=== PATIENT | male | born 1975 ===

== ENCOUNTER 2018-06-25 15:02 | Emergency (ER) | payer OTHER ==
[2018-06-25 15:31] VITALS: BP 109/62; PULSE 92; RESP 18; TEMP 98.8; O2SAT 100
--- NOTE | 2018-06-25 15:53 | ED PDOC ---
Upper Extremity Pain/Injury Time Seen by Provider: 06/25/18 15:35 Chief Complaint (Nursing): Upper Extremity Problem/Injury Chief Complaint (Provider): Right shoulder pain History Per: Patient History/Exam Limitations: no limitations Onset/Duration Of Symptoms: Days (x2) Current Symptoms Are (Timing): Still Present Quality: Sharp Additional Complaint(s): 43 year old male, with a past medical history of tendonitis, presents to the ED complaining of sharp and constant right shoulder pain for 2 days. Patient states pain is worse with movement but denies any injuries or fall. He indicates he did do more heavy lifting that day as he works for [employer]. Patient states he took Nabumetone and Flexeril this morning. Denies numbness or tingling orthopedist: Dr. Cinthia James Past Medical History Reviewed: Historical Data, Nursing Documentation, Vital Signs Vital Signs: Last Vital Signs Temp 98.8 F 06/25/18 15:29 Pulse 92 H 06/25/18 15:29 Resp 18 06/25/18 15:29 BP 109/62 06/25/18 15:29 Pulse Ox 100 06/25/18 15:29 - Medical History Other PMH: Tendonitis - Surgical History Surgical History: No Surg Hx - Family History Family History: States: Unknown Family Hx - Home Medications Home Medications: Ambulatory Orders Medication Instructions Recorded traMADol [Ultram] 50 mg PO TID PRN #12 tab 06/25/18 - Allergies Allergies/Adverse Reactions: Allergies Allergy/AdvReac Type Severity Reaction Status Date / Time No Known Allergies Allergy Verified 06/25/18 15:29 Review of Systems ROS Statement: Except As Marked, All Systems Reviewed And Found Negative Musculoskeletal: Positive for: Shoulder Pain (right) Physical Exam - Reviewed Nursing Documentation Reviewed: Yes Vital Signs Reviewed: Yes - Physical Exam Comments: GENERAL APPEARANCE: Patient is awake, alert, oriented x 3, in no acute distress. SKIN: Warm, dry; (-) cyanosis. RESPIRATORY: Lungs: (-) rales, (-) rhonchi, (-) wheezes; breath sounds equal bilaterally. HEART AND CARDIOVASCULAR: (-) irregularity; (-) murmur, (-) gallop. RIGHT SHOULDER: (+) anterior lateral shoulder tenderness; Decreased shoulder abduction secondary to pain. Neurovascularly intact. (-) swelling, (-) deformity NEURO AND PSYCH: Mental status as above. - ECG O2 Sat by Pulse Oximetry: 100 (RA) Pulse Ox Interpretation: Normal Medical Decision Making Medical Decision Making: Initial Impression: Right shoulder X-ray Initial Plan: --Toradol 30mg IM --Right shoulder X-ray Date of service: 06/25/2018 PROCEDURE: Radiographs of the Right Shoulder HISTORY: pain COMPARISON: No prior. TECHNIQUE: 3 views obtained. FINDINGS: BONES: Bone alignment and mineralization are normal. There is no acute displaced fracture or bone destruction. JOINTS: Normal. Glenohumeral and acromioclavicular joints preserved. No osteoarthritis. SOFT TISSUES: There are extensive lobular calcifications lateral to the greater tuberosity of the humerus. OTHER FINDINGS: None. IMPRESSION: Extensive lobular calcifications lateral to the greater tuberosity of the humerus may represent calcific tendinitis in the appropriate clinical setting No acute fracture or dislocation. The final report is tagged to the PA review folder. re eval pt is feeling mild improvement, already taking muscle relaxer and NSAID at home, will give rx for tramadol no results found on [employer] Rx search Discussed results, diagnosis, treatment, return precautions and f/u with pt who is understanding, in agreement and stable for dc Scribe Attestation: Documented by Agustin Nava acting as a scribe for Antoine GUPTA. Provider Scribe Attestation: All medical record entries made by the Scribe were at my direction and personally dictated by me. I have reviewed the chart and agree that the record accurately reflects my personal performance of the history, physical exam, medical decision making, and the department course for this patient. I have also personally directed, reviewed, and agree with the discharge instructions Disposition - Clinical Impression Clinical Impression: Tendinitis, calcific, shoulder - Patient ED Disposition Is Patient to be Admitted: No Counseled Patient/Family Regarding: Studies Performed, Diagnosis, Need For Followup, Rx Given - Disposition Referrals: Cinthia James MD [Staff Provider] - Disposition: Routine/Home Disposition Time: 17:02 Condition: IMPROVED Additional Instructions: Rest, ice and elevate your arm. Wear sling for support. Take medications as previously prescribed. Take Tramadol as prescribed, do not drive or drink alcohol when taking. Thank you for letting us take care of you today. The emergency medical care you received today was directed at your acute symptoms. If you were prescribed any medication, please fill it and take as directed. It may take several days for your symptoms to resolve. Return to the Emergency Department if your symptoms worsen, do not improve, or if you have any other problems. Please contact your doctor in 2 days for re-evaluation and follow up / or call one of the physicians/clinics you have been referred to that are listed on the Patient Visit Information form that is included in your discharge packet. Bring any paperwork you were given at discharge with you along with any medications you are taking to your follow up visit. Our treatment cannot replace ongoing medical care by a primary care provider (PCP) outside of the emergency department. Prescriptions: traMADol [Ultram] 50 mg PO TID PRN #12 tab PRN Reason: Pain, Severe (8-10) Instructions: Calcific Tendonitis of the Shoulder (DC) Forms: [employer] (Citizen [place]), [facility] ED School/Work Excuse Print Language: URDU - POA Present On Arrival: None
--- NOTE | 2018-06-25 16:30 | RAD ---
Date of service: 06/25/2018 PROCEDURE: Radiographs of the Right Shoulder HISTORY: pain COMPARISON: No prior. TECHNIQUE: 3 views obtained. FINDINGS: BONES: Bone alignment and mineralization are normal. There is no acute displaced fracture or bone destruction. JOINTS: Normal. Glenohumeral and acromioclavicular joints preserved. No osteoarthritis. SOFT TISSUES: There are extensive lobular calcifications lateral to the greater tuberosity of the humerus. OTHER FINDINGS: None. IMPRESSION: Extensive lobular calcifications lateral to the greater tuberosity of the humerus may represent calcific tendinitis in the appropriate clinical setting. No acute fracture or dislocation. The final report is tagged to the PA review folder.
== END 2018-06-25 17:09 | disposition home or self-care (01) ==
LOC: H.ER 15:02
DX: M75.31 Calcific tendinitis of right shoulder (principal)
CPT/HCPCS: 73030; 96372; 99284; J1885